=== PATIENT | female | born 1980 | race Caucasian/White ===

== ENCOUNTER 2021-12-08 15:59 | Inpatient (IN) | payer OTHER ==
[~2021-12-08] VITALS: Ht 160 cm; Wt 119.7 kg
[2021-12-10] VITALS (10 sets, daily range): BP systolic 129–157; BP diastolic 70–87; PULSE 82–99; TEMP 97.6–98.7
[2021-12-10] MEDS ORDERED: CYMBALTA 60MG60 MG PO (12:11)
[2021-12-10] MEDS ORDERED: ADDERALL XR15 MG PO (12:11)
[2021-12-10] MEDS ORDERED: PRILOSEC 20MG20 MG PO (12:11)
[2021-12-10] MEDS ORDERED: MULTI VITAMINS1 TAB PO (12:12)
--- NOTE | 2021-12-10 12:30 | NUR ---
PT AMBULATED TO BAY 5 WITHOUT DIFFICULTY ACCOMPANIED BY . VS OBTAINED. CONSENT SIGNED. 18G IV INFUSING LR IN L WRIST. ASSESSMENT COMPLETED. ORIENTED PT TO CALL LIGHT. VERBALIZED UNDERSTANDING. CALL LIGHT WITHIN REACH. PT DENIES ANY ADDITIONAL NEEDS AT THIS TIME.
--- NOTE | 2021-12-10 23:28 | NUR ---
Patient reports Dilaudid ANVILSMITH is effective with pain management. Remains NPO. Denies having any nausea or upset stomach. Denies SOB and dyspnea. IV fluids continue per orders to IV site on left hand. BS hypoactive. Reports she has not started passing gas yet. Bandaids to abdomen CDI. Drain to LLQ with bloody drainage. No leaking to area. Indwelling jovel catheter patent, draining clear yellow urine via dependent drainage. Did get up and ambulate in hallway with PCT. Voices no questions, needs, or concerns at this time. In bed with call light within reach.
[2021-12-11] VITALS (7 sets, daily range): BP systolic 124–157; BP diastolic 64–94; PULSE 68–95; TEMP 98–98.3
--- NOTE | 2021-12-11 05:36 | NUR ---
Patient had 25 ml bloody drainage from SUZANNE drain. Dressing CDI. 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 Voices no questions, needs, or concerns at this time. Continues on IV fluids per orders. In bed with call light within reach.
[2021-12-11 06:18] LABS: BASO % 0.1 % (0.0-2.0); EOS % 0.1 % (0.0-4.0); GRAN # 10.5 K/mm3 (1.4-6.5); HEMATOCRIT 39.9 % (37.0-47.0); LYMPH # 0.8 K/mm3 (1.2-3.4); LYMPH % 6.5 % (20.0-51.0); MEAN CELL VOLUME 89 fl (80.0-100.0); MEAN CORPUSCULAR HEMOGLOBIN 29 pg (27-31); MEAN CORPUSCULAR HGB CONC 33 g/dl (33.0-37.0); MEAN PLATELET VOLUME 10.5 fl (7.4-10.4); MONO # 0.7 K/mm3 (0.1-0.6); MONO % 5.8 % (1.7-9.3); PLATELET COUNT 241 K/mm3 (130-400); RED BLOOD COUNT 4.47 M/mm3 (4.10-5.30); REDCELL DISTRIBUTION WIDTH-CV 13.2 % (11.5-14.5)
[2021-12-11 06:36] LABS: ALBUMIN 3.4 gm/dL (3.5-5.0); BILIRUBIN,TOTAL 0.5 mg/dL (0.2-1.2); CALCIUM 8.2 mg/dL (8.4-10.2); CREATININE, serum 0.75 mg/dL (0.57-1.11); POTASSIUM 4.5 mmol/L (3.5-4.5); TOTAL PROTEIN 6.6 gm/dL (6.2-8.1)
--- NOTE | 2021-12-11 07:00 | NUR ---
PT RESTING IN BED. 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 PT NPO AWAITING SWALLOW TEST. PT HAS CALL LIGHT WITHIN REACH. PT DENIES NEEDS AT THIS TIME.
--- NOTE | 2021-12-11 09:43 | NUR ---
Weight Checker met with patient to discuss discharge planning. Patient lives on [address] with her , Herber (ph#[phone]) who is active duty. Patient goes to [facility] for primary care and uses [facility] in [place] for medications. Patient does not use any DME and is independent with ADLS. Patient does not have Advance Directives. Patient states she plans to return home at time of discharge. Discharge Plan: Home
--- NOTE | 2021-12-11 11:21 | NUR ---
CALL PLACED TO , MESSAGE LEFT.
--- NOTE | 2021-12-11 11:36 | NUR ---
RETURNED CALL, AND STATED OK TO START 15MLqHR. STATES HE WILL BE HERE SOON TO SEE PT.
--- NOTE | 2021-12-11 20:10 | NUR ---
Pt. sitting up in bed. Pt. is A&OX3, assessment complete. IV to lt. hand patent, IV fluids running per orders. Pt. reports pain at a 5 on pain scale, giving pain meds per order. Pt. also reports mild nausea, gave nausea meds per orders. Pt. denies further needs, call light within reach.
[2021-12-12 03:25] VITALS: BP 142/69; PULSE 84; TEMP 99.4
[2021-12-12 08:00] VITALS: BP 124/76; PULSE 87; TEMP 98.1
--- NOTE | 2021-12-12 08:00 | NUR ---
Patient sleeping in bed, easily awakened with verbal command. A&Ox4. VSS. IV CDI, fluids infusing. Denies pain and discomfort. Independent in the room. Call light within reach
--- NOTE | 2021-12-12 09:23 | NUR ---
Several visit attempts; Patient sleeping, [employer]utter left card offering God's blessings and informing patient of the availability of Spirit[facility] Care at [facility].
[2021-12-12 12:00] VITALS: BP 107/73; PULSE 99; TEMP 98.5
[2021-12-12] MEDS ORDERED: ZOFRAN 4MG T4 MG/TAB PO (12:29)
[2021-12-12] MEDS ORDERED: NORCO 325 MG-51 TAB PO (12:30)
--- NOTE | 2021-12-12 13:01 | NUR ---
SUZANNE drain removed from LLQ, patient tolerated well. Gauze and tegaderm applied. IV removed, tip intact. Patient taken by wheelchair to ER entrance to awaiting vehicle.
== END 2021-12-12 13:05 | disposition home or self-care (01) | DRG 621 ==
LOC: SURG 12-10 11:43 → INPTSU 12-10 11:43 → SURG 12-10 13:30 → SDCO 12-10 13:30 → EDSTATUS 12-10 13:30 → SURG 12-10 14:45
PROVIDERS: ADMIT Surgery
PROC: 8E0W4CZ Robotic Assisted Procedure of Trunk Region, Percutaneous Endoscopic Approach (ICD-10-PCS; 2021-12-10)
PROC: 0D164ZA Bypass Stomach to Jejunum, Percutaneous Endoscopic Approach (ICD-10-PCS; principal; 2021-12-10 13:30)
DX: E66.01 Morbid (severe) obesity due to excess calories (principal); K21.9 Gastro-esophageal reflux disease without esophagitis; Z68.42 Body mass index [BMI] 45.0-49.9, adult; Z87.891 Personal history of nicotine dependence; Z72.89 Other problems related to lifestyle; Z23 Encounter for immunization
CPT/HCPCS: A4314; C9113; J0690; J1100; J1170; J1650; J1885; J1956; J2250; J2405; J2550; J2704; J3010; J3480; J7120